=== PATIENT | male | born 1970 | race Caucasian/White ===

== ENCOUNTER 2016-08-28 20:46 | Emergency (ER) | payer OTHER ==
[~2016-08-28] VITALS: Ht 180.3 cm; Wt 122.7 kg
[~2016-08-28 20:46] MED LIST: AMITRIPTYLINE; BUSPIRONE; KEP500TA PO; OMEP20TA86 PO; ZES5
[2016-08-28 20:53] VITALS: BP 176/106; PULSE 85; RESP 20; O2SAT 100
--- NOTE | 2016-08-28 21:24 | ED.REPORT ---
HPI-Chest Pain 40 and Over Date of Service August 28, 2016 ED Provider: Sundeep Main MD Pt is a 46 y.o. male with a hx of complex regional pain syndrome and HTN who presents to the ED c/o left-sided chest pain and pressure onset 1 hour prior to arrival. Pt reports associated diaphoresis, dizziness, and SOB. He states that he felt his left Achilles tendon "pop" and that is what proceeded the chest pain. Pt reports taking 5mg Valium 4-5 hours prior to arrival. Pt has a hx of cardiac catheterization but has no hx of NM. Nursing Notes Stated Complaint: CHEST PAIN Chief Complaint: Chest Pain Nursing Notes Reviewed: Yes Allergies: Coded Allergies: NSAIDS (Non-Steroidal Anti-Inflamma (Verified Allergy, Unknown, 08/28/16) diphenhydramine (Verified Allergy, Unknown, 08/28/16) gabapentin (Verified Allergy, Unknown, 08/28/16) Scheduled Levetiracetam (Keppra) 500 Mg Tablet 500 MG PO BID Omeprazole (Omeprazole) 20 Mg Tablet.dr 20 MG PO BID Miscellaneous Medications ([Lisinopril]) ([Buspirone]) ([Amitriptyline]) General Time Seen by MD: 21:14 Chief Complaint Chest pain, Chest pressure Hx Obtained From: Patient Arrived By: Walk-in Sudden in Onset?: Yes Onset Occurred: 1 - 4 hours ago Symptom Duration: Since onset Location: : Chest left Quality: Painful, Pressure Radiation: : Does not radiate Severity: Current: Moderate Severity: Maximum: Severe Similar Sx Previous: Yes Past Medical History Past Medical History complex regional pain sydrome Head injury 2000 Reports: GERD, Hypertension Reports: Depression, Ureterolithiasis Past Surgical History Cardiac cath Reports: Back/neck surgery Smoking History Unknown if Ever Smoker Social History Other Social History: Good social support Ambulatory Status Independent Review of Systems Respiratory: Reports: Shortness of breath Cardiovascular: Reports: Chest pain Musculoskeletal: Reports: Extremity pain (Left lower extremity) Skin: Reports Diaphoresis Neurologic: Reports: Dizziness Complete sys rev & neg: except as marked. Physical Exam Initial Vital Signs Vital Signs (First) Date Time Temp Pulse Resp B/P Pulse Ox O2 Delivery O2 Flow Rate FiO2 08/28/16 20:53 36.0 85 20 176/106 100 Room Air Initial VS: Reviewed, Vital signs abnormal Head / Eyes: Atraumatic, Normocephalic Extremities: Vascular intact, Neuro intact Skin: Warm, Dry, No cyanosis Neurologic: Alert, Oriented, Nonfocal Psychiatric: Mood/affect normal, Behavior normal, Normal thought content General/Constitutional: Awake, Alert, Well appearing, Well developed, Well hydrated, Well nourished, Not toxic appearing Behavior: Positive: Anxious Pt appears shaky Respiratory / Chest: Atraumatic, Breath sounds NL, Breath sounds = bilat, No respiratory distress Cardiovascular: Heart rate NL, Regular rhythm, Heart sounds NL, Peripheral circulation NL No lower extremity edema Abdomen: Atraumatic, Soft, Non-tender, No guarding, No rebound, No distention Neck: Atraumatic, Supple, No JVD Lower Extremity / Pelvis / MS: Atraumatic, No deformity, Neurologic intact, Vascular intact Left Leg / Calf: Positive: Tenderness present... (over Achilles), Negative: Ecchymosis present, Erythema present, Swelling present..., Warmth present Scarring over distal Achilles, no acute changes Atrophy of left calf vs. right Skin: Atraumatic, Color NL, No rash, Warm, Intact Color / Condition: Positive: Diaphoresis present Interpretation & Diagnostics Lab Results Interpretation Result Diagram: 08/28/16 2224 08/28/16 2150 Test 08/28/16 21:50 08/28/16 22:24 08/28/16 22:25 08/29/16 00:55 Sodium Level 142mEq/L (134-144) Potassium Level 4.2mEq/L (3.5-5.2) Chloride Level 103mEq/L (97-108) Carbon Dioxide Level 24mmol/L (18-29) Blood Urea Nitrogen 7mg/dL (6-24) Creatinine 0.72mg/dL (0.76-1.27) Estimat Glomerular Filtration Rate 124mL/min (>59) Glucose Level 187mg/dL (60-99) Calcium Level 9.0mg/dL (8.5-10.1) Magnesium Level 2.0mg/dL (1.6-2.6) Total Bilirubin 0.2mg/dL (0.0-1.2) Aspartate Amino Transf (AST/SGOT) 40U/L (0-50) Alanine Aminotransferase (ALT/SGPT) 59U/L (0-44) Alkaline Phosphatase 102U/L (25-150) Total Protein 6.7g/dL (6.4-8.4) Albumin 4.3g/dL (3.4-5.0) White Blood Count 6.0th/mm3 (3.8-10.1) Red Blood Count 5.26mil/mm3 (4.40-5.80) Hemoglobin 16.0g/dL (13.8-17.2) Hematocrit 45.2% (41.0-50.0) Mean Corpuscular Volume 85.9fL (81-100) Mean Corpuscular Hemoglobin 30.4pg (27.0-35.0) Mean Corpuscular Hemoglobin Concent 35.4% (32.0-37.0) Red Cell Distribution Width 12.5% (12.3-15.4) Platelet Count 173bil/L (150-400) Neutrophils (%) (Auto) 48.4% (40-74) Lymphocytes (%) (Auto) 38.7% (14-46) Monocytes (%) (Auto) 9.2% (4-12) Eosinophils (%) (Auto) 3.3% (0-5) Basophils (%) (Auto) 0.2% (0-3) D-Dimer < 0.50mg/L FEU (<0.50) Hold Blue Top Tube Received (Received) Hold Larsen Top Tube Received (Received) Hold Mcrae Top Tube Received (Received) Troponin T 0.010ug/L (0.0-0.011) Lab values outside NL range: no clinical significance. Lab Results Interpretation: Troponin negative 2, d-dimer negative ECG Interpretation ECG Interpretation: LVH Time: 21:05 Interpreted by: ED physician Normal ECG Interpretation: Normal rate (85), Normal sinus rhythm, No change from prior ECGs (11/23/15) Time: 22:41 Interpreted by: ED physician Normal ECG Interpretation: Normal rate (76), Normal sinus rhythm Repeat ECG: Repeat ECG unchanged X-Ray Chest Interpretation Chest Xray Interpretation: IMPRESSION: No acute cardiopulmonary disease Interpretation / Wet Read by: Wet read ED physician Re-Eval/Medical Decision Med Decision/Clinical Course 46-year-old male with chest pain and a significant anxiety response to it. Emergency room evaluation to include negative troponin 2, negative EKG 2, negative d-dimer, and negative chest x-ray. He does not appear to have serious disease at this time. He is much improved, including no further chest pain and no anxiety response. Source of Hx: Old records Time of Eval: 22:38 Re-Evaluation/Progress Note: Pt is reporting that his chest pressure and diaphoresis has worsened. Time of Eval: 22:45 Re-Evaluation/Progress Note: Pt rechecked. He states his sx do not feel like anxiety. He reports that the [place] stopped the chest pain immediately but has since returned. Discussed need for D-dimer, pt understands and agrees with plan. Time of Eval: 00:48 Re-Evaluation/Progress Note: Pt rechecked. Pt feels improved. Discussed need for repeat troponin, pt understands and agrees with plan. Counseled Regarding: Diagnosis, Lab results, Need for follow-up, When/why to return to ED Discharge & Departure Primary Impression: Chest pain with low risk for cardiac etiology Disposition: Home Discharge Condition All VS Reviewed: Yes Condition: Improved Patient Instructions: Chest Pain (ED) Additional Instructions: There is no evidence of serious heart or lung disease at this time. Chest x- ray is normal, EKG is normal 2, troponin heart enzyme test is negative 2, d- dimer lung blood clot test is normal, and all the other labs look okay. I think at least part of your symptoms were due to anxiety. I think it safe for you to go home. Follow-up with your regular doctor as needed. Return here if you worsen or call me at [phone] between 9 PM and 6 AM for the next couple nights if you have any questions. Referrals: Luz Mackay DO (PCP) Juventino Attestation Portions of this note were transcribed by Stoney Romeo. I, Dr. Main personally performed the history, physical exam and medical decision-making; I reviewed and confirmed the accuracy of the information in the transcribed note. Signed by: Juventino Camarillo, 08/29/16 and 0145. copies to: Luz Mackay Howard L MD August 28, 2016 21:24 STONEY ROMEO August 28, 2016 21:27
[2016-08-28 21:34] VITALS: BP 157/90; PULSE 85; RESP 16; O2SAT 98
[2016-08-28 22:22] LABS: TROPONIN T 0.01 ug/L (0.0-0.011)
[2016-08-28 22:46] LABS: BASOPHILS % (AUTO) 0.2 % (0-3); EOSINOPHILS % (AUTO) 3.3 % (0-5); MONOCYTES % (AUTO) 9.2 % (4-12); Mean Corpuscular Hemoglobin 30.4 pg (27.0-35.0); Mean Corpuscular Volume 85.9 fL (81-100); NEUTROPHILS % (AUTO) 48.4 % (40-74); Platelet Count 173 bil/L (150-400)
[2016-08-29 02:04] VITALS: BP 157/96; PULSE 66; RESP 25; O2SAT 96
--- NOTE | 2016-08-29 08:52 | DRSVH ---
PROCEDURE: X-RAY CHEST ONE VIEW, PORTABLE ([id number]) INDICATIONS: CP TECHNIQUE: One view of the chest was acquired. COMPARISON: [facility], CR, XR CHEST 1VW (PORTABLE), 11/23/2015, 1:00. FINDINGS: Surgical changes and devices: None. Lungs and pleura: No pleural effusions or pneumothorax. Lungs are clear. Mediastinum: Mediastinal contours appear normal. Heart size is normal. Bones and chest wall: No suspicious bony lesions. Overlying soft tissues appear unremarkable. IMPRESSION: No acute cardiopulmonary disease. Dictated by: Naeem Arvizu [facility] Interpreted: Sherman Polanco MD on 08/29/2016 at 8:51 Transcribed by: GARRETT on 08/29/2016 at 8:51 Approved by: Sherman Polanco M.D. on 08/29/2016 at 9:42
[2016-08-30] MEDS ORDERED: MELA1TAB16 PO (17:45)
[2016-08-30] MEDS ORDERED: DOXY25TA44 PO (17:45)
[2016-08-30] MEDS ORDERED: OXYC1TAB24 PO (18:29)
== END 2016-08-29 02:00 | disposition home or self-care (01) ==
LOC: SED 20:46
DX: R07.89 Other chest pain (principal); R61 Generalized hyperhidrosis; R42 Dizziness and giddiness; R06.02 Shortness of breath; K21.9 Gastro-esophageal reflux disease without esophagitis; I10 Essential (primary) hypertension; F32.9 Major depressive disorder, single episode, unspecified; Z88.8 Allergy status to other drugs, medicaments and biological substances
CPT/HCPCS: 36415; 71010; 80053; 83735; 84484; 85025; 85378; 93005; 96374; 96376; 99285; J2270

== ENCOUNTER 2016-08-30 17:31 | Emergency (ER) | payer OTHER ==
[~2016-08-30] VITALS: Ht 180.3 cm; Wt 122.7 kg
[2016-08-30 17:38] VITALS: BP 153/96; PULSE 99; RESP 16; O2SAT 98
[2016-08-30] MEDS ORDERED: DOXY25TA44 PO (17:45)
[2016-08-30] MEDS ORDERED: MELA1TAB16 PO (17:45)
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
[2016-08-30] MEDS ORDERED: OXYC1TAB24 PO (18:29)
== END 2016-08-30 19:19 | disposition home or self-care (01) ==
LOC: SED 17:31
DX: S86.092A Other specified injury of left Achilles tendon, initial encounter (principal); X50.0XXA Overexertion from strenuous movement or load, initial encounter; Y93.89 Activity, other specified; Y92.89 Other specified places as the place of occurrence of the external cause; Y99.8 Other external cause status; M79.672 Pain in left foot; I10 Essential (primary) hypertension; E78.5 Hyperlipidemia, unspecified; K21.9 Gastro-esophageal reflux disease without esophagitis; F17.200 Nicotine dependence, unspecified, uncomplicated; Z88.8 Allergy status to other drugs, medicaments and biological substances